=== PATIENT | female | born 1990 | race African-American/Black ===

== ENCOUNTER 2019-05-01 20:45 | Emergency (ER) | payer MEDICAID ==
[~2019-05-01] VITALS: Ht 157.5 cm; Wt 63.5 kg
[2019-05-01 21:04] VITALS: BP 131/89
== END 2019-05-01 21:48 | disposition home or self-care (01) ==
LOC: ER 20:45
DX: B35.4 Tinea corporis (principal)

== ENCOUNTER 2020-04-13 03:13 | Emergency (ER) | payer MEDICAID ==
[~2020-04-13] VITALS: Ht 157.5 cm; Wt 66.2 kg
[2020-04-13 03:45] VITALS: BP 138/40
== END 2020-04-13 04:05 | disposition home or self-care (01) ==
LOC: ER 03:16
DX: S62.306A Unspecified fracture of fifth metacarpal bone, right hand, initial encounter for closed fracture (principal); F17.210 Nicotine dependence, cigarettes, uncomplicated; W22.01XA Walked into wall, initial encounter; Y93.89 Activity, other specified; Y92.89 Other specified places as the place of occurrence of the external cause; Y99.8 Other external cause status
CPT/HCPCS: 73130; 81002; 81025

== ENCOUNTER 2022-11-30 10:56 | Emergency (ER) | payer MEDICAID ==
[~2022-11-30] VITALS: Ht 160 cm; Wt 68.0 kg
[2022-11-30 11:12] VITALS: BP 125/83
[2022-11-30] MEDS ORDERED: CEPH500C PO (12:57)
== END 2022-11-30 13:41 | disposition home or self-care (01) ==
LOC: ER 10:56
DX: S60.042A Contusion of left ring finger without damage to nail, initial encounter (principal); L02.03 Carbuncle of face; F17.210 Nicotine dependence, cigarettes, uncomplicated; W22.8XXA Striking against or struck by other objects, initial encounter; Y93.89 Activity, other specified; Y92.89 Other specified places as the place of occurrence of the external cause; Y99.8 Other external cause status
CPT/HCPCS: 73140